=== PATIENT | female | born 1965 | race Caucasian/White ===

== ENCOUNTER 2018-03-20 19:40 | Emergency (ER) | payer MEDICAID ==
[2018-03-20 19:41] VITALS: BMI 24.7
[2018-03-20] MEDS ORDERED: Sodium Chloride 0.9% 1,000 ML IV STA ×2 (19:59→23:22)
--- NOTE | 2018-03-20 20:18 | ED PDOC ---
HPI: Headache Time Seen by Provider: 03/20/18 19:50 Chief Complaint (Nursing): Headache History Per: Patient History/Exam Limitations: no limitations Onset/Duration Of Symptoms: Waxing/Waning Current Symptoms Are (Timing): Still Present Quality: Dull, Aching, Pressure Associated Symptoms: Photophobia, Nausea, Vomiting. denies: Extremity Weakness Additional Complaint(s): Hx of chronic back problems presenting with headache. States that it started on Sunday, states that Sunday she had a routine dental cleaning procedure and the next day started with fronto-parietal throbbing headaches. States "Everything makes it worse" including light, noise, smells. States that she went to [facility] yesterday and was given antibiotics and percocet, states she did not like the way the percocet made her stomach feel and it did not help her headache. States no neck pain, neck stiffness, no fevers, nonthundercalp headache and headache was not maximal at onset. Past Medical History Reviewed: Historical Data, Nursing Documentation, Vital Signs Vital Signs: Last Vital Signs Temp 98.0 F 03/20/18 19:42 Pulse 62 03/20/18 19:42 Resp 16 03/20/18 19:42 BP 127/74 03/20/18 19:42 Pulse Ox 99 03/20/18 19:42 - Medical History PMH: Anemia Denies: Chronic Kidney Disease - Surgical History Surgical History: Endoscopy - Family History Family History: States: Unknown Family Hx - Home Medications Home Medications: Ambulatory Orders Medication Instructions Recorded Ascorbic Acid [Vitamin C] 1,000 mg PO DAILY 04/22/14 Ferrous Sulfate 325 mg PO DAILY 04/22/14 oxyCODONE/Acetaminophen [Percocet 1 tab PO Q4 PRN #0 tab 04/26/14 5/325 mg Tab] Amoxicillin 500 mg PO BID #20 cap 09/24/14 Ibuprofen [Motrin] 600 mg PO Q8 #30 tab 04/15/15 Acetaminophen/Butalbital/Caf 1 tab PO Q12 PRN #12 tab 03/20/18 [Fioricet] - Allergies Allergies/Adverse Reactions: Allergies Allergy/AdvReac Type Severity Reaction Status Date / Time No Known Allergies Allergy Verified 03/20/18 19:42 Review of Systems ROS Statement: Except As Marked, All Systems Reviewed And Found Negative Neurological: Positive for: Headache Physical Exam - Reviewed Nursing Documentation Reviewed: Yes Vital Signs Reviewed: Yes - Physical Exam Appears: Positive for: Non-toxic, Uncomfortable Head Exam: Positive for: ATRAUMATIC, NORMAL INSPECTION, NORMOCEPHALIC Skin: Positive for: Normal Color, Warm, DRY Eye Exam: Positive for: EOMI, Normal appearance, PERRL ENT: Positive for: Normal ENT Inspection Neck: Positive for: Normal, Painless ROM Cardiovascular/Chest: Positive for: Regular Rate, Rhythm Respiratory: Positive for: CNT, Normal Breath Sounds Gastrointestinal/Abdominal: Positive for: Normal Exam, Soft Back: Positive for: Normal Inspection Extremity: Positive for: Normal ROM Neurologic/Psych: Positive for: Alert, party host II-XII, Oriented, Cerebellar Tests (Normal). Negative for: Motor/Sensory Deficits, Aphasia, Facial Droop - ECG O2 Sat by Pulse Oximetry: 99 Pulse Ox Interpretation: Normal Medical Decision Making Medical Decision MakinPM Patient presenting with headache x 5 days --Uncomfortable, however nonfocal exam, normal vitals --DDx includes but not limited to: tension headache, atypical v. typical migraine, cluster headache --Not concerned for SAH or meningitis given history and exam --Will get head CT to r/o mass --Symptomatic treatment --Re-eval 1030PM --CT negative --Patient is feeling much better, states headache is resolving --Advised patient to followup with neurology for evaluation of migraines --Very well appearing upon discharge Disposition - Clinical Impression Clinical Impression: Headache - Patient ED Disposition Is Patient to be Admitted: No - Disposition Referrals: WILLAM JUAN [Other] Matias Taylor MD [Medical Doctor] - Disposition: Routine/Home Disposition Time: 22:44 Condition: IMPROVED Prescriptions: Acetaminophen/Butalbital/Caf [Fioricet] 1 tab PO Q12 PRN #12 tab PRN Reason: Headache Instructions: Headache, Adult Forms: [employer] ([place])
[2018-03-20] MEDS ORDERED: Promethazine 25 MG in Sodium Chloride 0.9% 50 ML IVPB ONE (21:02)
[2018-03-20] MEDS ORDERED: DiphenhydrAMINE 50 mg/ml Inj IVP STA (21:02)
[2018-03-20] MEDS ORDERED: Apap-Butalbital-Caffeine 325-50-40mg Tab PO STA ×2 (23:21→23:23)
[2018-03-21 01:41] VITALS: BP 113/84; PULSE 69; RESP 18; TEMP 98.6; O2SAT 100
--- NOTE | 2018-03-21 08:34 | CT ---
Date of service: 03/20/2018 PROCEDURE: CT HEAD WITHOUT CONTRAST. HISTORY: DANIELSON, worsening since Sunday COMPARISON: None available. TECHNIQUE: Axial computed tomography images were obtained through the head/brain without intravenous contrast. Radiation dose: Total exam DLP = 749.38 mGy-cm. This CT exam was performed using one or more of the following dose reduction techniques: Automated exposure control, adjustment of the mA and/or kV according to patient size, and/or use of iterative reconstruction technique. FINDINGS: HEMORRHAGE: No intracranial hemorrhage. BRAIN: No mass effect or edema. No atrophy or chronic microvascular ischemic changes. VENTRICLES: Unremarkable. No hydrocephalus. CALVARIUM: Unremarkable. PARANASAL SINUSES: Unremarkable as visualized. No significant inflammatory changes. MASTOID AIR CELLS: There is an appearance suggestive of prior right mastoidectomy. No evidence of mastoid effusion. OTHER FINDINGS: None. IMPRESSION: No intracranial mass, hemorrhage or evidence of acute infarct. The preliminary findings for this examination were reported by [facility] at 9:26 p.m. on 03/20/2018. There is concurrence of this report with the preliminary findings.
== END 2018-03-21 01:42 | disposition home or self-care (01) ==
LOC: H.ER 19:40
DX: R51 Headache (principal); R11.2 Nausea with vomiting, unspecified
CPT/HCPCS: 70450; 96361; 96365; 96375; 99285; J1200; J1885; J2405; J2550; J2765; J2930; J7030